=== PATIENT | female | born 1955 | race Caucasian/White ===

== ENCOUNTER 2018-05-06 16:25 | Emergency (ER) | payer OTHER ==
[2018-05-06] MEDS: KETOROLAC 60 MG INJ IM (20:24)
== END 2018-05-06 20:35 | disposition home or self-care (01) ==
LOC: FTE 16:25
DX: J34.89 Other specified disorders of nose and nasal sinuses (principal); E11.9 Type 2 diabetes mellitus without complications; I10 Essential (primary) hypertension
CPT/HCPCS: 96372; 99284-25; J1885